=== PATIENT | male | born 1995 | race American Indian/Alaskan Native ===

== ENCOUNTER 2022-09-15 07:32 | Inpatient (IN) | payer BC, MEDICAID ==
[~2022-09-15] VITALS: Ht 170.2 cm; Wt 63.6 kg
[~2022-09-15 07:32] MED LIST: BICT1TAB3 PO; DEC1T PO; NALO4SPR BOTHNARES
[2022-09-15] MEDS ORDERED: normal saline 1000ML IV soln IVB ONE ×2 (07:55→10:55)
[2022-09-15] MEDS ORDERED: naloxone 0.4 mg/ml inj IV ONE ×2 (07:55→09:40)
--- NOTE | 2022-09-15 08:19 | NUR ---
Cervical collar applied on patient for precautionary measures.
--- NOTE | 2022-09-15 08:46 | NUR ---
Patient started waking up after the Narcan 0.4 mg IV given x 1. Dr. Napoles at bedside
[2022-09-15 08:50] LABS: BASOPHILS % (AUTO) 0.4 % (0-1); EOSINOPHILS # (AUTO) 0.2 X10'3 (0-0.9); EOSINOPHILS % (AUTO) 3.7 % (0-6); HEMATOCRIT 45.1 % (42.0-52.0); HEMOGLOBIN 14.9 g/dl (14.0-17.9); LYMPHOCYTES # (AUTO) 2.2 X10'3 (1.1-4.8); LYMPHOCYTES % (AUTO) 35.2 % (21-51); MEAN CORPUSCULAR HEMOGLOBIN 30.3 PG (27.0-31.0); MEAN CORPUSCULAR HGB CONC 33.1 g/dL (33.0-36.5); MEAN CORPUSCULAR VOLUME 91.5 FL (78-98); MEAN PLATELET VOLUME 7.6 FL (7.4-10.4); MONOCYTES # (AUTO) 0.9 X10'3 (0-0.9); MONOCYTES % (AUTO) 13.9 % (2-12); NEUTROPHILS # (AUTO) 2.9 X10'3 (1.8-7.7); NEUTROPHILS % (AUTO) 46.8 % (42-75); PLATELET COUNT 271 X10'3 (140-440); RED BLOOD COUNT 4.93 X10'6 (4.70-6.10); RED CELL DISTRIBUTION WIDTH 14.7 % (11.5-14.5); WHITE BLOOD COUNT 6.3 X10'3 (4.5-11.0)
[2022-09-15 09:00] LABS: URINE AMPHETAMINE SCREEN POSITIVE (Neg); URINE BARBITUATE SCREEN NEGATIVE (Neg); URINE BENZODIAZEPINES SCREEN POSITIVE (Neg); URINE CANNABINOID SCREEN POSITIVE (Neg); URINE COCAINE SCREEN POSITIVE (Neg); URINE METHADONE SCREEN NEGATIVE (Neg); URINE OPIATE SCREEN NEGATIVE (Neg); URINE PHENCYCLIDINE SCREEN NEGATIVE (Neg)
[2022-09-15 09:08] LABS: ACETAMINOPHEN < 2.0 UG/ML (10-30); ALANINE AMINOTRANSFERASE 129 U/L (12-78); ALBUMIN 3.9 G/DL (3.4-5.0); ALBUMIN/GLOBULIN RATIO 0.8 (1.1-1.5); ALKALINE PHOSPHATASE 106 IU/L (46-116); ANION GAP 5 (8-16); ASPARTATE AMINO TRANSFERASE 61 U/L (10-37); BILIRUBIN,TOTAL 0.5 MG/DL (0.1-1.0); BLOOD UREA NITROGEN 14 MG/DL (7-18); BUN/CREATININE RATIO 17.1 (5.4-32.0); CALCIUM 9.7 MG/DL (8.5-10.1); CHLORIDE 101 MMOL/L (99-107); CREATINE KINASE 79 U/L (39-308); CREATININE 0.82 MG/DL (0.60-1.10); ETHANOL < 0.010 GM/DL (0.0-0.010); GLUCOSE 105 MG/DL (70-104); LIPASE 182 U/L (73-393); POTASSIUM 4.4 MMOL/L (3.5-5.1); SODIUM 141 MMOL/L (135-145); TOTAL CARBON DIOXIDE 34.8 MMOL/L (24-32); TOTAL PROTEIN 8.5 G/DL (6.4-8.2); eGFR > 90 ML/MIN
--- NOTE | 2022-09-15 09:15 | NUR ---
Pt just got back to his room from CT scan. Hooked patient back to monitor, warm IV fluid, and bear hugger
[2022-09-15] MEDS ORDERED: morphine 2 MG/ML inj. syringe IV PRN ×2 (10:55)
[2022-09-15] MEDS ORDERED: HYDROcodone/acetaminophen 5mg/325mg tablet PO PRN (10:55)
[2022-09-15] MEDS ORDERED: mag hydrox/Alum hydrox/simeth 30ml oral suspension PO PRN (10:55)
[2022-09-15] MEDS ORDERED: dextrose 50%-water 50ml dispensing syringe IV PRN ×2 (10:55)
[2022-09-15] MEDS ORDERED: glucagon, human recombinant 1mg kit SUBCUT PRN (10:55)
[2022-09-15] MEDS ORDERED: DEXTROSE 15 GM of carb/4 tabs (each vial/BOTTLE has 4 tablets) PO PRN ×2 (10:55)
[2022-09-15] MEDS ORDERED: insulin Lispro (HumaLOG) vial - multi-dose SQ SCH (10:55)
[2022-09-15] MEDS ORDERED: acetaminophen 325mg tablet PO PRN ×2 (10:55)
[2022-09-15] MEDS ORDERED: MESSAGE TO PHARMACY PO ONE (10:55)
[2022-09-15] MEDS ORDERED: magnesium hydroxide 30ml (MOM) UD suspension PO PRN (10:55)
[2022-09-15] MEDS ORDERED: ondansetron/PF 4mg/2ml inj IV PRN (10:55)
[2022-09-15 11:26] LABS: HEMOGLOBIN A1C 5.2 % (4.5-6.2)
[2022-09-15] MEDS: dextrose 5%-1/2 normal saline 1,000 ML IV SCH ×2 (12:30→19:49)
[2022-09-15] MEDS ORDERED: UNABLE TO OBTAIN (15:12)
[2022-09-15 15:30] VITALS: BP 98/51
--- NOTE | 2022-09-15 15:30 | NUR ---
Patient in room U 3017. I have received report from ricardo GONZALEZ and had the opportunity to ask questions and assume patient care. Pt awakes to shaking. eye open. not talking. long periods of sleep apnea 12 sec plus. RR 4-7 BPM. 2L o2 NC applied. continuous o2 sat monitor attached to tele. O2 sat 78- 96% Dr Melissa guzman. Addendum: 09/15/22 at 1619 by Kay Katz RN Amended: Links added.
--- NOTE | 2022-09-15 15:53 | NUR ---
07:36 am Late entry: Past medical history not completed as patient is not responsive to verbal command.
--- NOTE | 2022-09-15 16:10 | NUR ---
PAGER ID: [phone] MESSAGE: [id number] yeimy multani RR are 4-7 per min. O2 sat on 2l is 78-96%. Huge sleep apnea . Kay LOCKETT
[2022-09-15 18:00] VITALS: BP 94/47
--- NOTE | 2022-09-15 18:20 | NUR ---
Problems reprioritized. Patient report given, questions answered & plan of care reviewed with Kavon GONZALEZ. Bedside report completed.Pt sleeping. Addendum: 09/15/22 at 1821 by Kay Katz RN Amended: Links added.
[2022-09-15] MEDS: docusate sod 100mg capsule PO SCH (19:30)
[2022-09-15 20:00] VITALS: BP 137/68
[2022-09-15] MEDS ORDERED: insulin glargine (Lantus) pen - multi-dose SQ SCH (21:00)
[2022-09-15 22:51] VITALS: BP 113/60
[2022-09-16 02:42] VITALS: BP 100/61
[2022-09-16] MEDS: dextrose 5%-1/2 normal saline 1,000 ML IV SCH (05:25)
[2022-09-16 06:00] VITALS: BP 95/52
--- NOTE | 2022-09-16 06:00 | NUR ---
Patient in room PCU 3017. I have received report from Kavon GONZALEZ and had the opportunity to ask questions and assume patient care.Bedside report completed. Pt sleeping, no distress. RR WNL. Tabs alarm in place. Addendum: 09/16/22 at 0702 by Kay Katz RN Amended: Links added.
[2022-09-16 07:06] LABS: BASOPHILS % (AUTO) 0.2 % (0-1); EOSINOPHILS % (AUTO) 0.6 % (0-6); LYMPHOCYTES # (AUTO) 1.7 X10'3 (1.1-4.8); LYMPHOCYTES % (AUTO) 22.7 % (21-51); MEAN CORPUSCULAR HGB CONC 33.3 g/dL (33.0-36.5); MEAN PLATELET VOLUME 7.9 FL (7.4-10.4); MONOCYTES # (AUTO) 0.7 X10'3 (0-0.9); NEUTROPHILS # (AUTO) 5.2 X10'3 (1.8-7.7); NEUTROPHILS % (AUTO) 67.5 % (42-75); PLATELET COUNT 252 X10'3 (140-440); RED BLOOD COUNT 4.33 X10'6 (4.70-6.10); RED CELL DISTRIBUTION WIDTH 14.8 % (11.5-14.5); WHITE BLOOD COUNT 7.7 X10'3 (4.5-11.0)
[2022-09-16 07:35] LABS: ANION GAP 3 (8-16); BLOOD UREA NITROGEN 4 MG/DL (7-18); CHLORIDE 102 MMOL/L (99-107); CREATININE 0.67 MG/DL (0.60-1.10); GLUCOSE 122 MG/DL (70-104); POTASSIUM 3.9 MMOL/L (3.5-5.1); SODIUM 136 MMOL/L (135-145); eGFR > 90 ML/MIN
[2022-09-16] MEDS: docusate sod 100mg capsule PO SCH (08:00)
--- NOTE | 2022-09-16 11:19 | NUR ---
PAGER ID: [phone] MESSAGE: [id number] mandie fell back to sleep. Remains in room. Kay LOCKETT
[2022-09-16 11:30] VITALS: BP 112/57
--- NOTE | 2022-09-16 12:01 | NUR ---
PAGER ID: [phone] MESSAGE: [id number] rangel has left the building AMA. Taking with him all belongings and a turkey sandwich. Kay LOCKETT
== END 2022-09-16 12:05 | disposition left against medical advice (07) | DRG 812 ==
LOC: ER 07:34 → EDBD 11:01 → ED HOLD 11:01 → EDBEDREQ 14:39 → PCU 3S 15:36
PROVIDERS: ADMIT Internal Medicine; ATTEND Internal Medicine
DX: T42.4X1A Poisoning by benzodiazepines, accidental (unintentional), initial encounter (principal); G92.8 Other toxic encephalopathy; T68.XXXA Hypothermia, initial encounter; E87.20 Acidosis, unspecified; T43.651A Poisoning by methamphetamines accidental (unintentional), initial encounter; R74.01 Elevation of levels of liver transaminase levels; Z53.29 Procedure and treatment not carried out because of patient's decision for other reasons; X31.XXXA Exposure to excessive natural cold, initial encounter; F15.90 Other stimulant use, unspecified, uncomplicated; F14.90 Cocaine use, unspecified, uncomplicated; F12.90 Cannabis use, unspecified, uncomplicated; T40.5X1A Poisoning by cocaine, accidental (unintentional), initial encounter
CPT/HCPCS: 36415; 70450; 71045; 72125; 80048; 80053; 80305; 80320; 80329; 82550; 82948; 83036; 83605; 83690; 85025; 85610; 87040; 93005; 96361; 96374; 96376; 99291; A4615; G0378; J1815; J2310; J7030; J7042; L0172